=== PATIENT | female | born 1985 | race Caucasian/White ===

== ENCOUNTER 2018-05-04 17:24 | Emergency (ER) | payer OTHER ==
[~2018-05-04] VITALS: Ht 162.6 cm; Wt 50.5 kg
[2018-05-04 17:30] VITALS: TEMP 36.9; Ht 162.6 cm; Wt 50.5 kg
[2018-05-04 18:27] LABS: BASO % 0.5 %; BASO ABS # 0.03 K/uL (0-0.2); EOS % 2.1 %; EOS ABS # 0.14 K/uL (0-0.5); HEMATOCRIT 45.3 % (37-47); HEMOGLOBIN 15.4 g/dL (12.0-16.0); IG# 0.01 K/uL (0.00-0.02); LYMPH ABS # 2.96 K/uL (1.2-3.4); MEAN CELL VOLUME 96.4 fL (80-100); MEAN CORPUSCULAR HEMOGLOBIN 32.8 pg (25-34); MEAN PLATELET VOLUME 11.8 fL (7.4-10.4); MONO % 9.6 %; MONO ABS # 0.63 K/uL (0.11-0.59); NEUT % 42.6 %; NEUT ABS # 2.81 K/uL (1.4-6.5); PLATELET COUNT 194 K/uL (130-400); RED CELL DISTRIBUTION WIDTH CV 12.6 % (11.5-14.5); RED CELL DISTRIBUTION WIDTH SD 43.9 fL (36.4-46.3); WHITE BLOOD COUNT 6.58 K/uL (4.8-10.8)
[2018-05-04] MEDS ORDERED: BCPILLS PO (18:30)
[2018-05-04 18:36] LABS: INR 0.9 (0.9-1.1); PTT PATIENT 25.3 SECONDS (21.0-31.0)
[2018-05-04 18:44] LABS: CALCIUM 9.1 mg/dl (8.5-10.1); CREATININE 0.83 mg/dl (0.60-1.20)
--- NOTE | 2018-05-04 19:24 | DIAGNOSTIC IMAGING REPORT ---
ULTRASOUND L VENOUS DOPP LOWER EXT UNILAT CLINICAL HISTORY: left lower leg edema COMPARISON STUDY: No previous studies for comparison. FINDINGS: No thrombus was visualized in the common femoral or superficial femoral veins. There is nonocclusive thrombus within the popliteal vein. There is occlusive thrombus within both peroneal veins. There is thrombus present within both posterior tibial veins. The anterior tibial veins appear patent. IMPRESSION: Acute left lower extremity DVT with involvement of the popliteal vein, posterior tibial veins, and peroneal veins. Electronically signed by: Sher Vasquez M.D. 05/04/2018 7:23 PM Dictated Date/Time: 05/04/2018 7:20 PM
[2018-05-04] MEDS ORDERED: ENOX80IN SQ (20:13)
[2018-05-04] MEDS ORDERED: ENOXAPARIN 80 MG/0.8 ML SYR SQ ONE (20:15)
[2018-05-04] MEDS ORDERED: ENOXAPARIN 60 MG/0.6 ML SYR SQ ONE (20:15)
--- NOTE | 2018-05-04 20:34 | EMERGENCY ROOM VISIT NOTE ---
History First contact with patient: 17:30 Chief Complaint: CALF PAIN Stated Complaint: LEFT CALF PAIN, TIGHTNESS, ELEVATED D-DIMER History of Present Illness The patient is a 32 year old white female who presents to the Emergency Room with complaints of left lower leg pain and swelling. Patient flew to [place] a days ago and developed left leg pain upon landing. She did not seek treatment at that time. She was ambulating with a limp over the last 8 days. She denies any shortness of breath. No tachycardia. Due to a concern for a blood clot, she was seen at [facility] yesterday. She states the d-dimer was elevated but they were unable to perform a Doppler ultrasound. EKG was reportedly normal. She states they did not draw any other blood. Because of the suspicion for DVT, she was started on Lovenox 60 mg subcu twice a day. She has had 2 doses thus far. She arrived home today and came immediately to the she continues to have discomfort over the medial aspect of her calf. There is leg swelling. No shortness of breath or tachycardia. No history of DVTs. No family history of clotting disorders. No symptoms in the right leg. Her fianc accompanies her today. Review of Systems REVIEW OF SYSTEM: HEENT: No dizziness, visual problems, hearing loss, or tinnitus. There is no difficulty swallowing and no oral lesions are present. LYMPH: No adenopathy. PULMONARY: No cough, shortness of breath, sputum production or hemoptysis. CARDIOVASCULAR: No chest pain, palpitations, shortness of breath or prior peripheral edema. GASTROINTESTINAL: No diarrhea, constipation, nausea, vomiting, or abdominal pain. GENITOURINARY: No dysuria, frequency, urgency or nocturia. NEUROLOGIC: No weakness, muscle tenderness, epilepsy or history of neurological problems. MUSCULOSKELETAL: No history of joint tenderness/swelling. No history of arthritis or arthralgias. SKIN: No rashes or lesions. PSYCHIATRIC: No history of depression or mental illness. ENDOCRINE: No history of diabetes, thyroid disorders, or abnormal hair growth. Past Medical/Surgical History Previous surgeries: None. Medical history: Unremarkable. Family History History of strokes. Parents are living. Social History Smoking Status: Never Smoker Smokeless Tobacco Use: No Alcohol Use: occasionally Drug Use: none Marital Status: in relationship Housing Status: lives with significant other Occupation Status: employed Current/Historical Medications Scheduled Control Pills ( Control Pills), 1 TAB PO DAILY Enoxaparin (Lovenox), 80 MG SQ DAILY Physical Exam Vital Signs Date Time Temp Pulse Resp B/P (MAP) Pulse Ox O2 Delivery O2 Flow Rate FiO2 05/04/18 19:49 65 129/82 99 Room Air 05/04/18 18:08 60 16 140/101 100 Room Air 05/04/18 17:30 36.9 69 18 146/93 100 Room Air Physical Exam General: Well-developed, well-nourished, young white female, in no acute distress. Sitting on a bed. Alert and oriented. Skin: Warm and dry with good turgor. No rashes or lesions. No ecchymosis or erythema. The patient is not diaphoretic. No abrasions. Peripheral edema present in the left lower leg. Musculoskeletal: Patient is intact motor function to the ankle and toes on the left leg. Positive Homans test. Full range of motion of the knee. Neurologic: Gross sensation is intact across the left leg by soft touch. Peripheral pulses are 2+ for dorsalis pedis and 1+ for posterior tibial. Medical Decision & Procedures ER Provider Diagnostic Interpretation: Ultrasound imaging obtained today of the left lower extremity was read by radiology as positive for DVT in the popliteal vein, peroneal vein, and posterior tibial veins. Laboratory Results 05/04/18 18:05 Red Blood Count 4.70, Mean Corpuscular Volume 96.4, Mean Corpuscular Hemoglobin 32.8, Mean Corpuscular Hemoglobin Concent 34.0, Mean Platelet Volume 11.8, Neutrophils (%) (Auto) 42.6, Lymphocytes (%) (Auto) 45.0, Monocytes (%) (Auto) 9.6, Eosinophils (%) (Auto) 2.1, Basophils (%) (Auto) 0.5, Neutrophils # (Auto) 2.81, Lymphocytes # (Auto) 2.96, Monocytes # (Auto) 0.63, Eosinophils # (Auto) 0.14, Basophils # (Auto) 0.03 05/04/18 18:05 Test 05/04/18 18:05 White Blood Count 6.58 K/uL (4.8-10.8) Red Blood Count 4.70 M/uL (4.2-5.4) Hemoglobin 15.4 g/dL (12.0-16.0) Hematocrit 45.3 % (37-47) Mean Corpuscular Volume 96.4 fL (80-100) Mean Corpuscular Hemoglobin 32.8 pg (25-34) Mean Corpuscular Hemoglobin Concent 34.0 g/dl (32-36) Platelet Count 194 K/uL (130-400) Mean Platelet Volume 11.8 fL (7.4-10.4) Neutrophils (%) (Auto) 42.6 % Lymphocytes (%) (Auto) 45.0 % Monocytes (%) (Auto) 9.6 % Eosinophils (%) (Auto) 2.1 % Basophils (%) (Auto) 0.5 % Neutrophils # (Auto) 2.81 K/uL (1.4-6.5) Lymphocytes # (Auto) 2.96 K/uL (1.2-3.4) Monocytes # (Auto) 0.63 K/uL (0.11-0.59) Eosinophils # (Auto) 0.14 K/uL (0-0.5) Basophils # (Auto) 0.03 K/uL (0-0.2) RDW Standard Deviation 43.9 fL (36.4-46.3) RDW Coefficient of Variation 12.6 % (11.5-14.5) Immature Granulocyte % (Auto) 0.2 % Immature Granulocyte # (Auto) 0.01 K/uL (0.00-0.02) Prothrombin Time 9.5 SECONDS (9.0-12.0) Prothromb Time International Ratio 0.9 (0.9-1.1) Activated Partial Thromboplast Time 25.3 SECONDS (21.0-31.0) Partial Thromboplastin Ratio 1.0 Anion Gap 9.0 mmol/L (3-11) Est Creatinine Clear Calc Drug Dose 78.3 ml/min Estimated GFR () 108.9 Estimated GFR (Non- 94.0 BUN/Creatinine Ratio 13.4 (10-20) Calcium Level 9.1 mg/dl (8.5-10.1) CBC, PRP, and PT/INR were obtained. They are unremarkable. Medications Administered Medications (Trade) Dose Ordered Sig/Ana Maria Route Start Time Stop Time Status Last Admin Dose Admin Enoxaparin Sodium (Lovenox Inj) 80 mg NOW ONCE SQ 05/04/18 20:15 05/04/18 20:16 DC 05/04/18 20:24 80 MG Lovenox 80 mg subcu ED Course Patient and her fianc were educated regarding today's findings. Conservative care measures were discussed. IV was established. Labs were obtained. Ultrasound of the left lower extremity was also obtained. She has already been treated appropriately with Lovenox 60 mg subcu twice daily. She is 51 kg. Follow-up with her PCP Dr. Sandhu for further evaluation later this week. Continue on the Lovenox 80 mg once daily, which is a more appropriate dose after discussion with our pharmacy. Prescription was provided for 7 days worth. She may obtain a new prescription for the same medication or another anticoagulant from her PCP. She was questioned about possible shortness of breath or chest pain several times throughout her visit. She denied both each time. Signs of bleeding were discussed at length with her and she will return if any occur. Care plan was discussed with Dr. King. Medical Decision Possibility of DVT, PE, superficial phlebitis, muscle strain, and dependent edema were considered among others. Medication Reconcilliation Current Medication List: was personally reviewed by me Blood Pressure Screening Blood pressure disposition: Elevated BP felt to be situational Impression Primary Impression: Deep vein thrombosis (DVT) Departure Information Prescriptions Enoxaparin (Lovenox) 80 Mg/0.8 Ml Inj 80 MG SQ DAILY, #7 SYR Prov: Shane Catalan,P.A. 05/04/18 Referrals Amelia Sandhu M.D. (PCP) Patient Instructions [facility] Problem Qualifiers Primary Impression: Deep vein thrombosis (DVT) DVT location: lower extremity Affected thrombotic vein of extremity: popliteal Chronicity: acute Laterality: left Qualified Codes: I82.432 - Acute embolism and thrombosis of left popliteal vein
[2018-05-04 21:08] VITALS: BP 119/87; PULSE 66; O2SAT 98
== END 2018-05-04 21:08 | disposition home or self-care (01) ==
LOC: C.EDB 17:26
DX: I82.432 Acute embolism and thrombosis of left popliteal vein (principal)

== ENCOUNTER → 2018-05-06 | Outpatient (CLI) | payer OTHER ==
[~2018-05-06] MED LIST: BCPILLS PO; ENOX80IN SQ
--- NOTE | 2018-05-06 12:18 | DIAGNOSTIC IMAGING REPORT ---
VENOUS DOPPLER ULTRASOUND OF THE RIGHT LOWER EXTREMITY CLINICAL HISTORY: Right leg pain. History of left leg DVT. COMPARISON STUDY: No previous studies for comparison. FINDINGS: Real-time and color flow Doppler imaging were performed. Flow was seen within the femoral, popliteal and calf veins with no intraluminal thrombus demonstrated. The saphenous vein is patent. IMPRESSION: No evidence of right lower extremity DVT. Electronically signed by: Sher Vasquez M.D. 05/06/2018 12:17 PM Dictated Date/Time: 05/06/2018 12:16 PM
== END | disposition home or self-care (01) ==
LOC: C.ULTR 11:38
PROVIDERS: ATTEND Nurse Practitioner Adult Health
DX: M79.606 Pain in leg, unspecified (principal); I82.409 Acute embolism and thrombosis of unspecified deep veins of unspecified lower extremity